=== PATIENT | male | born 1985 | race Caucasian/White ===

== ENCOUNTER 2023-05-08 13:11 | Emergency (ER) | payer SELFPAY ==
[2023-05-08 13:23] VITALS: BP 136/91; PULSE 87; RESP 18; TEMP 36.7; O2SAT 99; BMI 23.3
== END 2023-05-08 13:44 | disposition left against medical advice (07) ==
PROVIDERS: Emergency Provider Emergency Medicine Emergency Medical Services; PCP Family Medicine
DX: Z53.21 Procedure and treatment not carried out due to patient leaving prior to being seen by health care provider (principal)
CPT/HCPCS: 80053; 83735; 83880; 84484; 85610; 85730